=== PATIENT | male | born 1960 | race Caucasian/White ===

== ENCOUNTER 2025-02-20 08:11 | Emergency (ER) | payer OTHER, SELFPAY ==
[2025-02-20] VITALS (15 sets, daily range): BP systolic 149–177; BP diastolic 81–94; PULSE 59–74; TEMP 36.7; O2SAT 91–97; BMI 36.9
--- NOTE | 2025-02-20 08:27 | XR_ITS ---
[facility] [id number] Patient Name: LIZET KWON MRN: [id number] date: 1960 Sex: M Assigned Patient Location: ED.MAIN Current Patient Location: ED.MAIN Accession/Order Number: [id number] Exam Date: 02/20/2025 09:00 Report Date: 02/20/2025 09:01 At the request of: DIEGO DONOVAN MD Procedure: XR hip RT min 2V XR hip RT min 2V 02/20/2025 8:53 AM SIGNS AND SYMPTOMS: Fall, right hip pain PROTOCOL: Frontal and frog-leg views of the right hip COMPARISON: None FINDINGS: There is total right hip arthroplasty hardware. No fracture or hardware palpation. The visualized right hemipelvis is grossly intact. Enthesophyte formation is noted along the ischial tuberosity. XR/XR hip RT min 2V IMPRESSION: Uncomplicated total right hip arthroplasty. No fracture or dislocation. Impression dictated by: Jesús Mae M.D. 02/20/2025 9:01 AM Dictation Location: [facility] Electronically authenticated by: [id number] Y Date: 02/20/2025 09:01
--- NOTE | 2025-02-20 08:27 | XR_ITS ---
[facility] [id number] Patient Name: LIZET KWON MRN: [id number] date: 1960 Sex: M Assigned Patient Location: ED.MAIN Current Patient Location: ED.MAIN Accession/Order Number: [id number] Exam Date: 02/20/2025 08:58 Report Date: 02/20/2025 09:00 At the request of: DIEGO DONOVAN MD Procedure: XR shoulder RT min 2V XR shoulder RT min 2V 02/20/2025 8:53 AM SIGNS AND SYMPTOMS: Fall, right shoulder pain PROTOCOL: Frontal, Grashey, and scapular Y views of the right shoulder COMPARISON: None FINDINGS: Hypertrophic changes are noted in the acromioclavicular joint with narrowing of the glenohumeral joint. There is spurring of the inferior margin of the glenoid and humeral head. There is subcortical sclerosis at the greater tuberosity of the humerus. There is no fracture or dislocation. Visualized right hemithorax is grossly intact. Anterior fusion hardware is noted in the cervical spine. XR/XR shoulder RT min 2V IMPRESSION: No fracture or dislocation. Degenerative changes are noted in the right shoulder with findings suspicious for underlying rotator cuff pathology. Impression dictated by: Jesús Mae M.D. 02/20/2025 9:00 AM Dictation Location: [place] [address] Electronically authenticated by: [id number] Y Date: 02/20/2025 09:00
--- NOTE | 2025-02-20 08:28 | ED.GENADUL1 ---
HPI HPI - General Adult General Chief complaint: Fall Stated complaint: [facility] F[facility] Time Seen by Provider: 02/20/25 08:15 Source: patient Mode of arrival: walk-in Limitations: no limitations History of Present Illness HPI narrative: 65-year-old male presents for pain in his right shoulder and right hip. He fell at work 2 days ago and he states his work place made him come in. No other injury was sustained. He has been able to ambulate and move his shoulder. No LOC and he did not hit his head. Related Data Home Medications ?Medication ?Instructions ?Recorded ?Confirmed atorvastatin 40 mg tablet mg 02/20/25 citalopram 40 mg tablet mg 02/20/25 lamotrigine 25 mg tablet mg 02/20/25 Previous Rx's ?Medication ?Instructions ?Recorded etodolac 300 mg capsule 300 mg PO Q6H PRN pain #20 caps 02/20/25 Allergies Allergy/AdvReac Type Severity Reaction Status Date / Time No Known Drug Allergies Allergy Verified 02/20/25 08:18 Opioid HPI Opioid Management Most Recent Opioid Data: Last Pain Scale 10 Today, 10:30 Last MAR Pain Assessment Today, 10:30 Review of Systems ROS Narrative A ten point review of systems is negative except as noted above. PFSH PFSH Social History Little interest or pleasure in doing things: not at all Feeling down, depressed, or hopeless: not at all Exam Narrative Exam Narrative: Nurses note and vital signs reviewed and patient is not hypoxic. General: The patient appears well and in no apparent distress. Patient is standing and walking around the room Skin: Warm, dry, no pallor noted. There is no rash noted. Head: Normocephalic, atraumatic Eye: Normal conjunctiva, no drainage Ears, Nose, Mouth, and Throat: oral mucosa is moist. Nares patent. Cardiovascular: Regular Rate and Rhythm Respiratory: Patient is in no distress, no accessory muscle use, lungs are clear to auscultation, no wheezing, rales or rhonchi Back: non-tender, including C-spine GI: Soft and nontender Musculoskeletal: Right hip has full range of motion and no bruises or deformity. Likewise, right shoulder has full range of motion and no deformity. Radial pulse 2+. Right elbow nontender. Neurological: A&O, normal speech Psychiatric: Cooperative Constitutional Vital Signs, click to edit/add: Last Vital Signs Temp 98.1 F 02/20/25 08:19 Pulse 59 L 02/20/25 10:10 Resp 22 H 02/20/25 09:18 BP 149/81 H 02/20/25 10:01 Pulse Ox 92 L 02/20/25 10:10 O2 Del Method Room Air 02/20/25 08:19 Course Vital Signs Vital signs: Vital Signs Temperature 98.1 F 02/20/25 08:19 Pulse Rate 74 02/20/25 08:19 Respiratory Rate 18 02/20/25 08:19 Blood Pressure 166/94 H 02/20/25 08:19 Pulse Oximetry 97 02/20/25 08:19 Oxygen Delivery Method Room Air 02/20/25 08:19 Temperature 98.1 F 02/20/25 08:19 Pulse Rate 59 L 02/20/25 10:10 Respiratory Rate 22 H 02/20/25 09:18 Blood Pressure 149/81 H 02/20/25 10:01 Pulse Oximetry 92 L 02/20/25 10:10 Oxygen Delivery Method Room Air 02/20/25 08:19 Medical Decision Making MDM Narrative Medical decision making narrative: His workup is negative including CT brain, x-ray of shoulder and x-ray of hip. Blood work is negative as well including troponin. He was given IV Toradol and prescribed Lodine. Treatment diagnosis and follow-up were discussed with the patient. Differential Diagnosis Differential Diagnosis: Contusions, fractures, intracranial hemorrhage Lab Data Lab results reviewed: Yes I reviewed the patient's lab results Labs: Lab Results 02/20/25 Range/Units 09:26 WBC 5.5 (4.0-11.0) 10^3/uL RBC 4.90 (4.70-6.10) 10^6/uL Hgb 15.9 (14.0-18.0) g/dL Hct 44.9 (42.0-54.0) % MCV 91.6 (80.0-94.0) fL MCH 32.4 (25.9-34.0) pg MCHC 35.4 H (29.9-35.2) g/dL RDW 12.0 (11.0-15.0) % Plt Count 152 (150-450) 10^3/uL MPV 9.3 L (9.5-13.5) fL Neut % (Auto) 65.0 (43.0-75.0) % Lymph % (Auto) 20.6 (20.5-60.0) % Saline % (Auto) 8.6 (1.7-12.0) % Eos % (Auto) 4.9 (0.9-7.0) % Baso % (Auto) 0.7 (0.2-2.0) % Neut # (Auto) 3.6 (1.4-6.5) 10^3/uL Lymph # (Auto) 1.1 L (1.2-3.8) 10^3/uL Saline # (Auto) 0.5 (0.3-0.8) 10^3/uL Eos # (Auto) 0.3 (0.0-0.7) 10^3/uL Baso # (Auto) 0.0 (0.0-0.1) 10^3/uL Abs Immat Gran (auto) 0.01 (0.00-0.03) 10^3/uL Imm/Tot Granulo (auto) 0.2 (0.0-0.5) % Sodium 142 (136-145) mmol/L Potassium 4.5 (3.5-5.1) mmol/L Chloride 106 (98-107) mmol/L Carbon Dioxide 29.8 (21.0-32.0) mmol/L Anion Gap 10.7 BUN 18.0 (7.0-18.0) mg/dL Creatinine 0.79 (0.70-1.30) mg/dL Est GFR ( Amer) >60 (>=60 mL/min/1.73m^2) Est GFR (Non-Af Amer) >60 (>=60 mL/min/1.73m^2) BUN/Creatinine Ratio 22.8 Glucose 104 (74-106) mg/dL Calcium 8.9 (8.5-10.1) mg/dL Troponin I High Sens 11.7 (4.0-76.1) pg/mL Imaging Data CT brain, right shoulder, right hip x-rays: Radiologist's impression: ITS Impressions Hip X-Ray 02/20/25 08:27 IMPRESSION: Uncomplicated total right hip arthroplasty. No fracture or dislocation. Impression dictated by: Jesús Mae M.D. 02/20/2025 9:01 AM Dictation Location: [facility]--24 Electronically authenticated by: [id number] Y Date: 02/20/2025 09:01 Shoulder X-Ray 02/20/25 08:27 IMPRESSION: No fracture or dislocation. Degenerative changes are noted in the right shoulder with findings suspicious for underlying rotator cuff pathology. Impression dictated by: Jesús Mae M.D. 02/20/2025 9:00 AM Dictation Location: [facility] Electronically authenticated by: [id number] Y Date: 02/20/2025 09:[address] 02/20/25 09:13 IMPRESSION: No acute intracranial pathology. 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 Impression dictated by: Jesús Mae M.D. 02/20/2025 9:46 AM Dictation Location: [facility] Electronically authenticated by: [id number] Y Date: 02/20/2025 09:46 ECG Data Attestation: I personally reviewed and interpreted this ECG as follows: (EKG on my interpretation shows sinus rhythm with a rate of 65 and 2 PVCs.) Discharge Plan Discharge Chief Complaint: Fall Clinical Impression: Contusion of multiple sites Patient Disposition: Home, Self-Care Time of Disposition Decision: 10:30 Condition: Good Mode of Transportation: Private Vehicle Prescriptions / Home Meds: New etodolac 300 mg capsule 300 mg PO Q6H PRN (Reason: pain) Qty: 20 0RF No Action atorvastatin 40 mg tablet citalopram 40 mg tablet lamotrigine 25 mg tablet Print Language: Azeri Instructions: Contusion in Adults (ED) Referrals: NANCY HERNÁNDEZ [Primary Care Provider, Family Practice] - 1 week
--- OUTSIDE RECORDS SUMMARY | 2025-02-20 08:35 | XMS_ITS | Clinical Summary ---
Author Organization [facility] Address [address] [place] [address] Care Team Providers Care Breast Buffer Name Role Phone Unavailable Primary Care Provider Unavailabl e Allergies No known active allergies Medications citalopram (CELEXA) 10 MG tablet Take 10 mg by mouth daily. Active traMADol (ULTRAM) 50 MG tablet Take 50 mg by mouth every 6 hours as needed. Active aspirin 81 MG EC tablet Take 1 tablet by mouth daily. 30 tablet 1 03/29/2013 Active atorvastatin (LIPITOR) 40 MG tablet Take 0.5 tablets by mouth nightly. 30 tablet 1 03/29/2013 Active Artificial Tear Ointment (EYE LUBRICANT) OINT Use eye ointment every night before sleeping & then apply patch to help make sure eye is closed. 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 Facial droop 03/29/2013 Family History Medical History Relation Name Comments Coronary Art Dis Father Stroke Maternal Grandmother Diabetes Mother Kidney Cancer Mother Relation Name Status Comments Father Maternal Grandmother Mother Social History Tobacco Use Types Packs/Day Years Used Date Smoking Tobacco: Never Alcohol Use Standard Drinks/Week Comments No 0 (1 standard drink = 0.6 oz pur e alcohol) Sex and Gender Information Value Date Recorded Sex Assigned at Not on file Legal Sex Male 9:26 AM EST Gender Identity Not on file Sexual Orientation Not on file Last Filed Vital Signs Vital Sign Reading Time Taken Comments Blood Pressure 143/72 03/29/2013 12:00 PM EDT Pulse 91 03/29/2013 12:00 PM EDT Temperature 36.2 C (97.2 F) 03/29/2013 12:00 PM EDT Respiratory Rate 18 03/29/2013 12:0 0 PM EDT Oxygen Saturation 96% 03/29/2013 12: 00 PM EDT Inhaled Oxygen Concentration - - Weight 105.9 kg (233 lb 7.5 oz) 03/28/2013 9:21 PM EDT Height 188 cm (6' 2 ) 03/28/2013 9:21 PM EDT Body Mass Index 29.98 03/28/2013 9:21 PM EDT Plan of Treatment Not on file Advance Directives * Full Code (Latest Code Status on File) Date Activated Date Inactivated Comments 03/28/2013 7:41 PM 03/29/2013 7:58 PM
--- OUTSIDE RECORDS SUMMARY | 2025-02-20 08:36 | XMS_ITS | Clinical Summary ---
Author Organization [facility] Address [address] [place] [address] Phone Care Team Providers Care Tool Design Draftsperson Name Role Phone Yola Acosta MD Primary Care Provider [phone] Allergies Active Allergy Reactions Criticality Noted Date Comments Hydromorphone Unknown 11/18/2023 Morphine Unknown 11/18/2023 Medications aspirin 81 mg EC tablet Take 1 tablet (81 mg) by mouth once daily. Active citalopram (CeleXA) 40 mg tablet Take 1 tablet (40 mg) by mouth once daily. Active atorvastatin (Lipitor) 40 mg tablet Take 1 tablet (40 mg) by mouth once daily. Active hydrOXYzine HCL (Atarax) 25 mg tablet Take 1 tablet (25 mg) by mouth 3 times a day. Active lamoTRIgine (LaMICtal) 25 mg tablet Take 1 tablet (25 mg) by mouth once daily at bedtime. Active naproxen (Naprosyn) 500 mg tablet Take 1 tablet (500 mg) by mouth 3 times a day as needed for mild pain (1 - 3). Active omeprazole (PriLOSEC) [address] capsule Take 1 capsule (20 mg) by mouth 2 times a day. Do not crush or chew. Active acetaminophen (Tylenol) 500 mg tablet Take 650 mg by mouth every 6 hours if needed for mild pain (1 - 3). 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 Essential hypertension 11/18/2023 Mixed hyperlipidemia 11/18/2023 Palpitations 11/18/2023 PVC (premature ventricular contraction) 11/18/19 24 Family History Medical History Relation Name Comments Hyperlipidemia Father Hypertension Father Hyperlipidemia Mother Hypertension Mother Kidney disease Sister Relation Name Status Comments Father Mother Sister Social History Tobacco Use Types Packs/Day Years Used Date Smoking Tobacco: Never Smokeless Tobacco: Never Alcohol Use Standard Drinks/Week Comments Never 0 (1 standard drink = 0.6 oz pur e alcohol) Sex and Gender Information Value Date Recorded Sex Assigned at Not on file Legal Sex Male 4:33 AM EST Gender Identity Not on file Sexual Orientation Not on file Last Filed Vital Signs Vital Sign Reading Time Taken Comments Blood Pressure 128/78 11/27/2022 9:40 AM EST Pulse 72 11/27/2022 9:40 AM EST Temperature - - Respiratory Rate - - Oxygen Saturation - - Inhaled Oxygen Concentration - - Weight 109 kg (240 lb) 11/27/2022 9:40 AM EST Height 180.3 cm (5' 11 ) 11/27/2022 9:40 AM EST Body Mass Index 33.47 11/27/2022 9:40 AM EST Plan of Treatment Health Maintenance Due Date Last Done Comments CT Colonography 1960 Colonoscopy 1960 Colorectal Cancer Screening 1960 FIT-DNA (Cologuard) 1960 FIT 1960 Lipid Panel 1960 Sigmoidoscopy 1960 Yearly Adult Physical 1960 MMR Vaccines (1 of 1 - Stand marty series) 1961 Hepatitis C Screening 02/21/1976 DTaP/Tdap/Td Vaccines (1 - Tdap) 02/21/1980 Pneumococcal Vaccine (1 of 1 - PCV) 02/21/2008 Zoster Vaccines (1 of 2) 02/21/2008 COVID-19 Vaccine ( - 2023-2 5 season) 2024 Influenza Vaccine (Season Ended) 2025 RSV High Risk: (Elderly (60+ ) or Population) (1 - 1-dose 75+ series) 2033 HIB Vaccines Aged Out No longer eligi ble based on patient's age to complete this topic HPV Vaccines Aged Out No longer eligi ble based on patient's age to complete this topic Hepatitis A Vaccines Aged Out No long er eligible based on patient's age to complete this topic Hepatitis B Vaccines Aged Out No long er eligible based on patient's age to complete this topic IPV Vaccines Aged Out No longer eligi ble based on patient's age to complete this topic Meningococcal Vaccine Aged Out No krystian daphney eligible based on patient's age to complete this topic Rotavirus Vaccines Aged Out No longer eligible based on patient's age to complete this topic Care Teams Tool Design Draftsperson Relationship Specialty Start Date End Date Yola Acosta MD [address] [place] [address] PCP - General 09/25/22
--- OUTSIDE RECORDS SUMMARY | 2025-02-20 08:36 | XMS_ITS | Referral Summary ---
Author Organization [facility] Address [address] [place] [address] Care Team Providers Care Safety Inspector Name Role Phone Unavailable Primary Care Provider Unavailabl e Social History Tobacco Use Types Packs/Day Years Used Date Smoking Tobacco: Never Assessed Sex and Gender Information Value Date Recorded Sex Assigned at Not on file Gender Identity Not on file Sexual Orientation Not on file Plan of Treatment Not on file
--- OUTSIDE RECORDS SUMMARY | 2025-02-20 08:36 | XMS_ITS | Clinical Summary ---
Author Organization [facility] Healthcare Address [address] [place] [address] Care Team Providers Care Vendor Manager Name Role Phone Yola Acosta MD Primary Care Provider Allergies Active Allergy Reactions Criticality Noted Date Comments Hydromorphone 11/18/2023 Other Reaction(s): Unknown Morphine Unknown 04/10/2021 Penicillin G Unknown 04/01/2023 Medications acetaminophen (Tylenol) 325 MG tablet every 4 (four) hours. Active Aspirin Low Dose 81 MG EC tablet Take 81 mg by mouth in the morning. 01/17/20 23 Active citalopram (CeleXA) 40 MG tablet Take 40 mg by mouth at bedtime. Active hydrOXYzine HCl (Atarax) 25 MG tablet Take 25 mg by mouth 3 (three) times a day as needed for anxiety. Active lamoTRIgine (LaMICtal) 25 MG tablet Take 1 tablet by mouth at bedtime. Active famotidine (Pepcid) 40 MG tablet Take by mouth. Activ e dicyclomine (Bentyl) 10 MG capsule Take 10 mg by mouth in the morning and 10 mg at noon and 10 mg in the evening and 10 mg before bedtime. 12/03/19 23 Active LORazepam (Ativan) 0.5 MG tabletIndications: Anxiety Take 1 tablet (0.5 mg) by mouth Daily as needed for anxiety for up to 2 days Take 1 30 minutes before the procedure and another at time of procedure if needed. 2 tablet 01/03/20 24 Active Additional Information Patient not taking.Reported on 05/15/2024 glucose blood (Accu-Chek Yael Plus) test stripIndications:T ype 2 diabetes mellitus with other specified complication, without long-term current use of insulin Use as instructed 100 each 3 03/02/20 24 025 Active Additional Information Patient not taking.Reported on 05/15/2024 atorvastatin (Lipitor) 40 MG tabletIndications: Hyperlipidemia, unspecified hyperlipidemia type (CMS/HCC) TAKE 1 TABLET(40 MG) BY MOUTH IN THE MORNING 90 tablet 2 06/22/20 24 Active naproxen (Naprosyn) 500 MG tabletIndications: Osteoarthritis, unspecified osteoarthritis type, unspecified site TAKE 1 TABLET BY MOUTH EVERY 12 HOURS NEEDED 180 tablet 07/17/20 24 Active omeprazole (PriLOSEC) [address] capsuleIndications :Peptic ulcer TAKE 1 CAPSULE BY MOUTH EVERY MORNING BEFORE MEALS 90 capsule 1 11/16/19 25 Active Active Problems Problem Noted Date Diagnosed Date Bigeminy 07/28/2023 Lumbago with sciatica, left side 07/28/2023 Lumbago with sciatica, right side 07/28/2023 Presence of right artificial hip joint 3 Primary osteoarthritis of left hip 07/28/2023 History of total right hip replacement 3 Supplemental oxygen dependent 08/07/2021 Nuclear senile cataract 03/21/2021 Chronic fatigue 11/15/2020 Shifting sleep-work schedule, affecting sleep Other chronic pain 07/05/2020 Arthritis of right hip 11/07/2019 Anxiety 10/12/2015 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 Facial droop 03/29/2013 Resolved Problems Problem Noted Date Diagnosed Date Resolved Date Mixed hyperlipidemia 10/12/2015 023 Immunizations Immunization Administration Dates Next Due Influenza, High Dose Seasona l, Preservative Free 07/28/2023 Influenza, Unspecified 07/06/2019 Influenza, injectable, MDCK, preservative free, quadrivalent 07/02/2020 Influenza, injectable, quadr ivalent, preservative free 07/09/2021,06/15/2017,06/27/2016,2014,06/27/2014 Influenza, seasonal, intrade rmal, preservative free 06/27/2012 Francis SARS-CoV-2 01/27/2021 Pneumococcal Conjugate PCV 20 12/28/2023 Td (adult), 5 Lf tetanus tox oid, preservative free, adsorbed 07/09/2008 Tdap 10/14/2017 Family History Medical History Relation Name Comments Cancer Mother Relation Name Status Comments Father Mother Social History Tobacco Use Types Packs/Day Years Used Date Smoking Tobacco: Never Smokeless Tobacco: Never Tobacco Cessation:Counseling Given: Not Answered Alcohol Use Standard Drinks/Week Comments Never 0 (1 standard drink = 0.6 oz pur e alcohol) 2-3 soda Sex and Gender Information Value Date Recorded Sex Assigned at Not on file Legal Sex Male 6:55 PM EDT Gender Identity Male 12/09/2022 6:55 PM EDT Sexual Orientation Not on file Last Filed Vital Signs Vital Sign Reading Time Taken Comments Blood Pressure 122/74 05/15/2024 1:39 PM EDT Pulse 80 12/28/2023 9:00 AM EDT Temperature 36.3 C (97.3 F) 05/15/2024 1:39 PM EDT Respiratory Rate - - Oxygen Saturation 95% 12/28/2023 9:00 AM EDT Inhaled Oxygen Concentration - - Weight 107 kg (235 lb) 05/15/2024 1:39 PM EDT Height 177.8 cm (5' 10 ) 12/28/2023 9:00 AM EDT Body Mass Index 33.72 12/28/2023 9:00 AM EDT Plan of Treatment Health Maintenance Due Date Last Done Comments CT Colonography 1960 FIT-DNA 1960 FIT 1960 FOBT 1960 Sigmoidoscopy 1960 Diabetes: Hemoglobin A1C 10/28/2023 07/28/2023, 10/28 Diabetes: Urine Protein Screening 08/23/2024 023 Influenza Vaccine (Season Ended) 2025 07/28/2023, 07/09/2021, 07/02/2020, Additional history exists Diabetes: Retinopathy Screening 09/22/2025 Colonoscopy 02/19/2033 02/19/2023, 01/26, 11/09/2016, Additional history exists Colorectal Cancer Screening 02/19/2033 Pneumococcal Vaccine: 65+ Years Completed 4 Procedures Procedure Name Priority Date/Time Associated Diagnosis Comments DIABETIC RETINOPATHY SCREENING - OU - BOTH EYES Routine 09/22/2023 12:04 PM EST MICROALBUMIN / CREATININE URINE RATIO Routine 08/23/2023 9:13 AM EST Type 2 diabetes mellitus with other specified complication, without long-term current use of insulin ([facility]) Encounter for wellness examination HEMOGLOBIN A1C Routine 07/28/2023 11:53 AM EDT Type 2 diabetes mellitus with other specified complication, without long-term current use of insulin ([facility]) Encounter for wellness examination HM COLONOSCOPY Routine 02/19/2023 12:51 PM EDT from Last 3 Months or Most Recently Relevant to Health Maintenance Results * Diabetic Retinopathy Screening - OU - Both Eyes (09/22/2023 12:04 PM EST) Anatomical Region Laterality Modality Head Other Ayla Mayfield NP OPHTH PHOTOGRAPHY Final Result * (ABNORMAL) Microalbumin / creatinine, urine ratio (08/23/2023 9:13 AM EST) CREATININE, RANDOM URINE 240 20 - 320 mg/dL [facility] ALBUMIN, URINE 14.2 See Note: mg/dL [facility] Comment: Reference Range: Reference Range Not established ALBUMIN/CREATININE RATIO, RANDOM URINE 59(H) <30 mcg/mg creat [facility] Comment: The ADA defines abnormalities in albumin excretion as follows: Albuminuria Category Result (mcg/mg creatinine) Normal to Mildly increased <30 Moderately increased 30-299 Severely increased > OR = 300 The ADA recommends that at least two of three specimens collected within a 3-6 month period be abnormal before considering a patient to be within a diagnostic category. Urine Urine specimen obtained by clean catch procedure / Unknown 08/23/2023 9:13 AM EST 08/23/2023 4:54 PM EST Narrative [facility] - 08/24/2023 11:00 AM EST SPLIT 07/28/2023 FROM [id number] Resulting Agency Comment Performing Organization Information Site ID: QPT Name: [facility] Address: [address] [place] [address], [address] [place] [phone] Director: Matt Brewer MD us Devorah Pak DRUM STRAIGHTENER LAB URINE ORDERABLES Fi nal Result Performing Organization Address [facility] de Phone Number [facility] * Hemoglobin A1c (07/28/2023 11:53 AM EDT) Hemoglobin A1C 5.5 <5.7 % of total Hgb [facility] Comment: For the purpose of screening for the presence of diabetes: <5.7% Consistent with the absence of diabetes 5.7-6.4% Consistent with increased risk for diabetes (prediabetes) > or =6.5% Consistent with diabetes This assay result is consistent with a decreased risk of diabetes. Currently, no consensus exists regarding use of hemoglobin A1c for diagnosis of diabetes in children. According to [place] Diabetes Association (ADA) guidelines, hemoglobin A1c <7.0% represents optimal control in non- diabetic patients. Different metrics may apply to specific patient populations. Standards of Medical Care in Diabetes(ADA). Blood Venous blood specimen / Unknown 07/28/2023 11:53 AM EDT 07/28/2023 11:53 AM EDT Narrative [facility] - 07/29/2023 7:53 AM EDT MULTIPLE TESTING PRIORITIES; ROUTINE TESTING TO FOLLOW. Resulting Agency Comment Performing Organization Information Site ID: QPT Name: [facility] Address: [facility] [place] , [address] [place] [phone] Director: Matt Brewer MD us Devorah Pak DRUM STRAIGHTENER LAB BLOOD ORDERABLES Fi nal Result Performing Organization Address [facility] de Phone Number [facility] * Hm Colonoscopy (02/19/2023 12:51 PM EDT) Anatomical Region Laterality Modality Other us Lul Maldonado MD HEALTH MAINTENANCE Final Result from Last 3 Months or Most Recently Relevant to Health Maintenance Insurance [employer] Care Teams Vendor Manager Relationship Specialty Start Date End Date Yola Acosta MD [address] [place] [address] PCP - General Family Medicine 03/11/23
--- OUTSIDE RECORDS SUMMARY | 2025-02-20 08:36 | XMS_ITS | Encounter Summary ---
Author Organization [facility] Address [address] [place] [address] Care Team Providers Care It Software Engineer Name Role Phone Yola Acosta MD Primary Care Provider Encounter Details Date Type Department Care Team (Late st Contact Info) Description 02/09/2024 Orders Only [facility] [address] [place] [phone] Ayla Mayfield NP [address] [place], [place] [phone] Social History Tobacco Use Types Packs/Day Years [...] PM EDT Sexual Orientation Not on file documented as of this encounter Plan of Treatment Not on file documented as of this encounter Procedures Procedure Name Priority Date/Time Associated Diagnosis Comments DIABETIC RETINOPATHY SCREENING - OU - BOTH EYES Routine 09/22/2023 12:04 PM EST documented in this encounter Results * Diabetic Retinopathy Screening - OU - Both Eyes (09/22/2023 12:04 PM EST) Anatomical Region Laterality Modality Head Other Ayla Mayfield NP OPHTH PHOTOGRAPHY Final Result documented in this encounter Visit Diagnoses Not on filedocumented in this encounter Care Teams It Software Engineer Relationship Specialty Start Date End Date Yola Acosta MD [address] [place] [address] PCP - General Family Medicine 03/11/23 documented as of this encounter
--- OUTSIDE RECORDS SUMMARY | 2025-02-20 08:36 | XMS_ITS | Encounter Summary ---
Author Organization [facility] Address [address] [facility] [place] [address] Care Team Providers Care Hand Stapler Name Role Phone Yola Acosta MD Primary Care Provider [phone] Encounter Details Date Type Department Care Team (Late st Contact Info) Description 11/22/2023 Abstract [facility] [address] [place] [phone] Ayla Mayfield NP [address] [place], [place] [phone] Social History Tobacco Use Types Packs/Day Years [...] on file documented as of this encounter Visit Diagnoses Not on filedocumented in this encounter Care Teams Hand Stapler Relationship Specialty Start Date End Date Yola Acosta MD [address] [place] [address] PCP - General Family Medicine 03/11/23 documented as of this encounter
--- OUTSIDE RECORDS SUMMARY | 2025-02-20 08:36 | XMS_ITS | Clinical Summary ---
Author Organization [facility] [employer] [facility] tem Address [id number] [address] [place] [address] Care Team Providers Care Nursing Attendant Name Role Phone Yola Acosta MD Primary Care Provider [phone] Allergies No known active allergies Medications citalopram (CeleXA) 20 mg tablet Take 40 mg by mouth daily. Active cholecalciferol, vitamin D3, 5,000 units tablet Take 5,000 Units by mouth daily. Active lamoTRIgine (LaMICtal) 25 mg tablet Take 25 mg by mouth daily. Active gabapentin (NEURONTIN) 300 mg capsule Take 300 mg by mouth 2 (two) times a day. Active naproxen (NAPROSYN) 500 mg tablet Take 500 mg by mouth 2 (two) times a day with meals. Active olopatadine (PATANOL) 0.1 % ophthalmic solution 1 drop 2 (two) times a day. Active atorvastatin (LIPITOR) 40 mg tablet Take 40 mg by mouth daily. Active Active Problems No known active problems Social History Tobacco Use Types Packs/Day Years Used Date Smoking Tobacco: Never Smokeless Tobacco: Never Alcohol Use Standard Drinks/Week Comments Not Currently 0 (1 standard drink = 0.6 oz pur e alcohol) Childcare Answer Date Recorded Childcare Unknown 03/08/2019 Employment Answer Date Recorded Employment Unknown 03/08/2019 Sex and Gender Information Value Date Recorded Sex Assigned at Not on file Legal Sex Male 11:21 AM EDT Gender Identity Not on file Sexual Orientation Not on file Last Filed Vital Signs Vital Sign Reading Time Taken Comments Blood Pressure 128/90 07/28/2021 7:18 PM EDT Pulse 93 07/28/2021 7:51 PM EDT Temperature 36.8 C (98.3 F) 07/28/2021 10:49 AM EDT Respiratory Rate 25 07/28/2021 7:51 PM EDT Oxygen Saturation 99% 07/28/2021 7:51 PM EDT Inhaled Oxygen Concentration - - Weight 111.6 kg (246 lb) 07/28/2021 10:45 AM EDT Height - - Body Mass Index - - Plan of Treatment Health Maintenance Due Date Last Done Comments Depression Screening 1970 Tobacco Screening 1970 Adult BMI Screening 02/21/1976 Zoster (Shingles) Vaccine (1 of 2) 02/21/2008 Fall Risk Screening 2023 COVID-19 Vaccine (3 - 2023-2 5 season) 2024 11/19/2021, 01/28/2021 Influenza Vaccine 05/28/2025 07/28/2023, , 07/02/2020, Additional history exists Colonoscopy 11/09/2026 11/09/2016 DTaP,Tdap and Td Vaccines (3 - Td or Tdap) 10/14/2027 10/14/2017, 07/09/2008 Medical Devices Not on file Insurance [employer] Care Teams Nursing Attendant Relationship Specialty Start Date End Date Yola Acosta MD [address] [place] [address] PCP - General Family Medicine 07/28/21
--- OUTSIDE RECORDS SUMMARY | 2025-02-20 08:36 | XMS_ITS | Encounter Summary ---
Author Organization [facility] Address [address] [place] [address] Care Team Providers Care Watermelon Harvesting Supervisor Name Role Phone Yola Acosta MD Primary Care Provider [phone] Encounter Details Date Type Department Care Team (Late st Contact Info) Description 03/05/2023 Orders Only [facility] [address] [facility] [address] [facility] [place] [address] Lul Maldonado MD [address] [place] [phone] Social History Tobacco Use Types Packs/Day Years [...] Procedure Name Priority Date/Time Associated Diagnosis Comments HM COLONOSCOPY Routine 02/19/2023 12:51 PM EDT documented in this encounter Results * Hm Colonoscopy (02/19/2023 12:51 PM EDT) Anatomical Region Laterality Modality Other Lul Maldonado MD HEALTH MAINTENANCE Final Result documented in this encounter Visit Diagnoses Not on filedocumented in this encounter Care Teams Watermelon Harvesting Supervisor Relationship Specialty Start Date End Date Yola Acosta MD [address] [place] [address] PCP - General Family Medicine 03/11/23 documented as of this encounter
--- OUTSIDE RECORDS SUMMARY | 2025-02-20 08:36 | XMS_ITS | Encounter Summary ---
Author Organization [facility] Address [address] [place] [address] Care Team Providers Care Child Development Consultant Name Role Phone Yola Acosta MD Primary Care Provider [phone] Reason for Visit * Reason Comments Med Refill Encounter Details Date Type Department Care Team (Late st Contact Info) Description 12/12/2023 Refill [facility] [address] [place] [phone] Ayla Mayfield NP [address] [place], [place] [phone] Osteoarthritis, unspecified osteoarthritis type, unspecified site Social History Tobacco Use Types Packs/Day Years [...] on file documented as of this encounter Miscellaneous Notes * Telephone Encounter - Yola Acosta MD - 12/13/2023 12:08 PM EDT Approving, but needs appt for additional refills. documented in this encounter Plan of Treatment Not on file documented as of this encounter Visit Diagnoses Diagnosis Osteoarthritis, unspecified osteoarthritis type, unspecified site documented in this encounter Care Teams Child Development Consultant Relationship Specialty Start Date End Date Yola Acosta MD [address] [place] [address] PCP - General Family Medicine 03/11/23 documented as of this encounter
--- OUTSIDE RECORDS SUMMARY | 2025-02-20 08:36 | XMS_ITS | Encounter Summary ---
Author Organization [facility] Address [address] [place] [address] Phone Care Team Providers Care Embosser Apprentice Name Role Phone Yola Acosta MD Primary Care Provider [phone] Encounter Details Date Type Department Care Team (Late st Contact Info) Description 08/31/2022 Orders Only [facility] [address] [place] [address] Conversion, Onbase Social History Tobacco Use Types Packs/Day Years Used Date Smoking Tobacco: Never Assessed Sex and Gender Information Value Date Recorded Sex Assigned at Not on file Legal Sex Male 4:33 AM EST Gender Identity Not on file Sexual Orientation Not on file documented as of this encounter Plan of Treatment Scheduled Orders Name Type Priority Associated Diagnoses Orde r Schedule OUTSIDE LAB SCAN Lab Ordered: 08/31/2022 documented as of this encounter Visit Diagnoses Not on filedocumented in this encounter Care Teams Embosser Apprentice Relationship Specialty Start Date End Date Yola Acosta MD [address] [place] [phone] PCP - General 09/25/22 documented as of this encounter
--- OUTSIDE RECORDS SUMMARY | 2025-02-20 08:36 | XMS_ITS | Clinical Summary ---
Author Organization [facility] Address [address] [place] [address] Care Team Providers Care Motor Vehicle Lecturer Name Role Phone Unavailable Primary Care Provider Unavailabl e Social History Tobacco Use Types Packs/Day Years Used Date Smoking Tobacco: Never Assessed Sex and Gender Information Value Date Recorded Sex Assigned at Not on file Gender Identity Not on file Sexual Orientation Not on file Plan of Treatment Not on file
--- NOTE | 2025-02-20 09:13 | CT_ITS ---
The [address] [address] Patient Name: LIZET KWON MRN: [id number] date: 1960 Sex: M Assigned Patient Location: ER Current Patient Location: ER Accession/Order Number: [id number] Exam Date: 02/20/2025 09:44 Report Date: 02/20/2025 09:46 At the request of: DIEGO DONOVAN MD Procedure: CT head/brain wo con CT head/brain wo con 02/20/2025 9:28 AM SIGNS AND SYMPTOMS: Fall, pain in right side of head with nausea TECHNIQUE:Multi-detector CT axial slices of the brain were obtained without IV contrast. CT was performed with one or more of the following dose reduction techniques: Automated exposure control, adjustment of the mA and/or kV according to patient size, or use of iterative reconstruction technique. COMPARISON: None. FINDINGS: There is no shift of the midline structures, acute intracranial bleeding, mass effects, or evidence of acute ischemia. Atherosclerotic changes are noted in the V4 segment of the left vertebral artery and intracranial segments of the internal carotid arteries. There is mild age-related cortical atrophy. The ventricular system is normal in size. The brainstem and the cerebellum are unremarkable. The visualized intraorbital contents, the visualized paranasal sinuses, and the infratemporal soft tissues show no acute abnormality. The osseous structures in the skull base and the calvarium show no abnormality. CT/CT head/brain wo con IMPRESSION: No acute intracranial pathology. 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 Impression dictated by: Jesús Mae M.D. 02/20/2025 9:46 AM Dictation Location: Enertiv Electronically authenticated by: [id number] Y Date: 02/20/2025 09:46
--- NOTE | 2025-02-20 09:13 | ECG_ITS ---
The [facility] Test Date: 2025-02-20 Pat Name: LIZET KWON Department: Room: - Gender: Male Stamp Maker: : 1960 Requested By: [id number] Order Number: [id number] Reading MD: WILL HOOKS M.D. Measurements Intervals Monon Rate: 65 P: 55 IL: 180 QRS: 71 QRSD: 86 T: 48 QT: 408 QTc: 419 Interpretive Statements 1100 Sinus rhythm 1570 with occasional ventricular premature complexes 9140 abnormal rhythm ECG Compared to ECG 08/30/2022 15:33:41 No significant changes Electronically Signed On 02-20-2025 13:33:09 EDT by WILL HOOKS M.D.
[2025-02-20 09:42] LABS: Basophils Percent Auto 0.7 % (0.2-2.0); Eosinophils Absolute Auto 0.3 10^3/uL (0.0-0.7); Eosinophils Percent Auto 4.9 % (0.9-7.0); Hematocrit 44.9 % (42.0-54.0); Hemoglobin 15.9 g/dL (14.0-18.0); Immature Granulocytes Abs Auto 0.01 10^3/uL (0.00-0.03); Immature Granulocytes Pct Auto 0.2 % (0.0-0.5); Lymphocytes Absolute Auto 1.1 10^3/uL (1.2-3.8); Lymphocytes Percent Auto 20.6 % (20.5-60.0); Mean Corpuscular HGB Conc 35.4 g/dL (29.9-35.2); Mean Corpuscular Hemoglobin 32.4 pg (25.9-34.0); Mean Corpuscular Volume 91.6 fL (80.0-94.0); Mean Platelet Volume 9.3 fL (9.5-13.5); Monocytes Absolute Auto 0.5 10^3/uL (0.3-0.8); Monocytes Percent Auto 8.6 % (1.7-12.0); Neutrophils Absolute Auto 3.6 10^3/uL (1.4-6.5); Platelet Count 152 10^3/uL (150-450); White Blood Count 5.5 10^3/uL (4.0-11.0)
[2025-02-20 10:10] LABS: Anion Gap 10.7; BUN Creatinine Ratio 22.8; Calcium 8.9 mg/dL (8.5-10.1); Carbon Dioxide 29.8 mmol/L (21.0-32.0); Chloride 106 mmol/L (98-107); Estimated GFR (African America >60 (>=60 mL/min/1.73m^2); Estimated GFR (Non-African Ame >60 (>=60 mL/min/1.73m^2); Glucose 104 mg/dL (74-106); Potassium 4.5 mmol/L (3.5-5.1); Sodium 142 mmol/L (136-145); Troponin I High Sensitivity 11.7 pg/mL (4.0-76.1)
[2025-02-20] MEDS: KETOROLAC TROMETHAMINE 30 MG/ML VIAL IVP (10:30)
== END 2025-02-20 11:13 | disposition home or self-care (01) ==
PROVIDERS: Emergency Provider Emergency Medicine; PCP Family Medicine
DX: T14.8XXA Other injury of unspecified body region, initial encounter (principal); W18.39XA Other fall on same level, initial encounter
CPT/HCPCS: 36415; 70450; 73030; 73502; 80048; 84484; 85025; 93005; 96374; 99285; J1885

== ENCOUNTER 2025-08-28 09:47 | Outpatient (OUT) | payer OTHER, SELFPAY ==
--- OUTSIDE RECORDS SUMMARY | 2025-08-28 09:50 | XMS_ITS | Clinical Summary ---
Author Organization [facility] Address [address] [place] [address] Care Team Providers Care Sales Project Engineer Name Role Phone Unavailable Primary Care Provider Unavailabl e Social History Tobacco UseTypesPacks/DayYears UsedDateSmoking Tobacco: Never AssessedSex and Gender InformationValueDate RecordedSex Assigned at BirthNot on fileLegal Sex Male03/25/2022 9:23 PM EDTGender IdentityNot on fileSexual OrientationNot on file Plan of Treatment Not on file
--- OUTSIDE RECORDS SUMMARY | 2025-08-28 09:50 | XMS_ITS | Clinical Summary ---
Author Organization [facility] Address [address] [place] [address] Phone Care Team Providers Care Asbestos Pipe Supervisor Name Role Phone Yola Acosta MD Primary Care Provider [phone] Allergies Active AllergyReactionsCriticalityNoted DateCommentsHydromorphoneUnknown 11/18/20234595NcwocljbYzaqoyj39/22/2024 Medications MedicationSigDispense QuantityRefillsLast FilledStart DateEnd DateStatus aspirin 81 mg EC tablet Take 1 tablet (81 mg) by mouth once daily.Active citalopram (CeleXA) 40 mg tablet Take 1 tablet (40 mg) by mouth once daily.Active atorvastatin (Lipitor) 40 mg tablet Take 1 tablet (40 mg) by mouth once daily.Active hydrOXYzine HCL (Atarax) 25 mg tablet Take 1 tablet (25 mg) by mouth 3 times a day.Active lamoTRIgine (LaMICtal) 25 mg tablet Take 1 tablet (25 mg) by mouth once daily at bedtime.Active naproxen (Naprosyn) 500 mg tablet Take 1 tablet (500 mg) by mouth 3 times a day as needed for mild pain (1 - 3). Active omeprazole (PriLOSEC) [address] capsule Take 1 capsule (20 mg) by mouth 2 times a day. Do not crush or chew.Active acetaminophen (Tylenol) 500 mg tablet Take 650 mg by mouth every 6 hours if needed for mild pain (1 - 3).Active Active Problems ProblemNoted DateDiagnosed DateAbnormal EKG011/18/2023nxiety and depression 11/18/20235244Ogkrydmn02/22/2024ell's palsy11/18/2023Essential hypertension 11/18/2023Mixed zijyvidxfzozyt51/22/7526Lwhzmshlqkjj34/22/2024VC (premature ventricular contraction)11/18/2023 Family History Medical HistoryRelationNameCommentsHyperlipidemiaFatherHypertensionFather HyperlipidemiaMotherHypertensionMotherKidney diseaseSisterRelationNameStatus CommentsFatherMotherSister Social History Tobacco UseTypesPacks/DayYears UsedDateSmoking Tobacco: NeverSmokeless Tobacco: NeverAlcohol UseStandard Drinks/WeekCommentsNever0 (1 standard drink = 0.6 oz pure alcohol)Sex and Gender InformationValueDate RecordedSex Assigned at Not on fileLegal TtyIltp27/26/2022 4:33 AM ESTGender IdentityNot on fileSexual OrientationNot on file Last Filed Vital Signs Vital SignReadingTime TakenCommentsBlood Zgelayhv384/78011/27/2022 9:40 AM EST Rrhkw4967/03/2023 9:40 AM ESTTemperature--Respiratory Rate--Oxygen Saturation-- Inhaled Oxygen Concentration--Bkojoy603 kg (240 lb)11/27/2022 9:40 AM ESTHeight 180.3 cm (5' 11 )11/27/2022 9:40 AM ESTBody Mass Index33.47011/27/2022 9:40 AM EST Plan of Treatment Health MaintenanceDue DateLast DoneCommentsCT Ikjxqyyaotgm1958Colonoscopy 1958Colorectal Cancer Xkuwaeesi1958FIT-DNA (Cologuard)1958FIT 1958Lipid Panel1958 0464Hxttbetksvlxp1958Yearly Adult Physical 1958MMR Vaccines (1 of 1 - Standard series)1959Hepatitis C Screening 02/21/1976DTaP/Tdap/Td Vaccines (1 - Tdap)02/21/1980PSA Prostate Cancer Lfpscngot65/27/2008Pneumococcal Vaccine (1 of 1 - PCV)02/21/2008Zoster Vaccines (1 of 2)02/21/2008Influenza Vaccine (#1)2025OVID-19 Vaccine (1 - 2024- season)2025RSV High Risk: (Elderly (60+) or Population) (1 - 1- dose 75+ series)2033HIB VaccinesAged OutNo longer eligible based on patient's age to complete this topicHPV VaccinesAged OutNo longer eligible based on patient's age to complete this topicHepatitis A VaccinesAged OutNo longer eligible based on patient's age to complete this topicHepatitis B VaccinesAged OutNo longer eligible based on patient's age to complete this topicIPV Vaccines Aged OutNo longer eligible based on patient's age to complete this topic Meningococcal VaccineAged OutNo longer eligible based on patient's age to complete this topicRotavirus VaccinesAged OutNo longer eligible based on patient's age to complete this topic Care Teams Team MemberRelationshipSpecialtyStart DateEnd Date Yola Acosta MD [address] [place] [address] PCP - Qtlohmj78/30/22
--- OUTSIDE RECORDS SUMMARY | 2025-08-28 09:50 | XMS_ITS | Encounter Summary ---
Author Organization [facility] Address [address] [place] [address] Care Team Providers Care Shoe Shanker Name Role Phone Yola Acosta MD Primary Care Provider [phone] Encounter Details DateTypeDepartmentCare Team (Latest Contact Info)Edmupamyzqf93/26/2025Telephone [facility] Medicine [address] [place] [address] Gloria Burns MA Social History Tobacco UseTypesPacks/DayYears UsedDateSmoking Tobacco: NeverSmokeless Tobacco: NeverAlcohol UseStandard Drinks/WeekCommentsNever0 (1 standard drink = 0.6 oz pure alcohol)Caffine: 1 liter dailyPHQ-2AnswerDate RecordedPatient Health Questionnaire-2 Wksti690Sex and Gender InformationValueDate RecordedSex Assigned at BirthNot on fileLegal PigRfbc0712/09/2022 6:55 PM EDTGender Identity Male12/09/2022 6:55 PM EDTSexual OrientationNot on filedocumented as of this encounter Miscellaneous Notes * Telephone Encounter - Gloria Burns MA - 08/22/2025 4:24 PM EST Spoke with pt, he will be in for labs soon documented in this encounter Plan of Treatment DateTypeDepartmentCare Team (Latest Contact Info)Rdevatoaqle05/08/2025 2:45 PM ESTOffice Visit [facility] [address] [place] [address] Genoveva Mcginnis, DO [address] [place] [address] documented as of this encounter Visit Diagnoses Not on filedocumented in this encounter Additional Health Concerns AssessmentNoted TimePHQ-9 Depression Total Score: 3:32 PM EDT documented as of this encounter Care Teams Team MemberRelationshipSpecialtyStart DateEnd Date Yola Acosta MD [address] [place], [place] [id number] PCP - GeneralFamily Medicine03/11/23documented as of this encounter
--- OUTSIDE RECORDS SUMMARY | 2025-08-28 09:50 | XMS_ITS | Clinical Summary ---
Author Organization [facility] Address [address], [address] [place] [address] Care Team Providers Care Manager Surgical Name Role Phone Unavailable Primary Care Provider Unavailabl e Allergies No known active allergies Medications MedicationSigDispense QuantityRefillsLast FilledStart DateEnd DateStatus citalopram (CELEXA) 10 MG tablet Take 10 mg by mouth daily.Active traMADol (ULTRAM) 50 MG tablet Take 50 mg by mouth every 6 hours as needed.Active aspirin 81 MG EC tablet Take 1 tablet by mouth daily. 30 tablet ctive atorvastatin (LIPITOR) 40 MG tablet Take 0.5 tablets by mouth nightly. 30 tablet ctive Artificial Tear Ointment (EYE LUBRICANT) OINT Use eye ointment every night before sleeping & then apply patch to help make sure eye is closed. 1 Tube ctive Active Problems ProblemNoted DateDiagnosed DateBell's palsy03/29/2013Facial droop03/29/2013 Family History Medical HistoryRelationNameCommentsCoronary Art DisFatherStrokeMaternal GrandmotherDiabetesMotherKidney CancerMotherRelationNameStatusCommentsFather Maternal GrandmotherMother Social History Tobacco UseTypesPacks/DayYears UsedDateSmoking Tobacco: NeverAlcohol UseStandard Drinks/WeekCommentsNo0 (1 standard drink = 0.6 oz pure alcohol)Sex and Gender InformationValueDate RecordedSex Assigned at BirthNot on fileLegal SexMale 11/06/2012 9:26 AM ESTGender IdentityNot on fileSexual OrientationNot on file Last Filed Vital Signs Vital SignReadingTime TakenCommentsBlood Pypigejh654/7207 12:00 PM EDT Atnuk3155 12:00 PM LZHAdnjvxcyhyt12.2 ??C (97.2 ??F)03/29/2013 12:00 PM EDTRespiratory Mtdp726303/29/2013 12:00 PM EDTOxygen Lcgnsssicu06%03/29/2013 12:00 PM EDTInhaled Oxygen Concentration--Bipzgu761.9 kg (233 lb 7.5 oz)03/28/2013 9:21 PM FDHPhiqxe084 cm (6' 2 )03/28/2013 9:21 PM EDTBody Mass Index29.98 03/28/2013 9:21 PM EDT Plan of Treatment Not on file Advance Directives * Full Code (Latest Code Status on File) Date ActivatedDate InactivatedComments03/28/2013 7:41 PM03/29/2013 7:58 PM
--- OUTSIDE RECORDS SUMMARY | 2025-08-28 09:50 | XMS_ITS | Clinical Summary ---
Author Organization [facility] Address [address] [place] [address] Care Team Providers Care Design Engineer Agricultural Equipment Name Role Phone Yola Acosta MD Primary Care Provider [phone] Allergies Active AllergyReactionsCriticalityNoted DateCommentsHydromorphoneOtherLow 11/18/2023 He was hallucinating but thinks it was because he was given too high of a dose SuzvbsszNibdzQai44/15/2021 He was hallucinating but thinks it was because he was given too high of a dose Penicillin PCzsxedfQdo87/06/2023 Unsure of reaction Medications MedicationSigDispense QuantityRefillsLast FilledStart DateEnd DateStatus acetaminophen (Tylenol) 325 MG tablet every 4 (four) hoursActive Aspirin Low Dose 81 MG EC tablet Take 81 mg by mouth Daily01/16/2023ctive citalopram (CeleXA) 40 MG tablet Take 40 mg by mouth at bedtimeActive hydrOXYzine HCl (Atarax) 25 MG tablet Take 25 mg by mouth 3 (three) times a day as needed for anxietyActive lamoTRIgine (LaMICtal) 25 MG tablet Take 1 tablet by mouth at bedtimeActive atorvastatin (Lipitor) 40 MG tablet Indications:Hyperlipidemia, unspecified hyperlipidemia typeTAKE 1 TABLET(40 MG) BY MOUTH IN THE MORNING 90 tablet 5Active sucralfate (Carafate) 1 g tablet Indications:PUD (peptic ulcer disease)Take 1 tablet (1 g) by mouth in the morning and 1 tablet (1 g) in the evening. Take before meals. 180 tablet 5Active omeprazole (PriLOSEC) [address] capsule Indications:Peptic ulcerTake 1 capsule (40 mg) by mouth in the morning. Take before meals. Do not crush or chew. 90 capsule 5Active losartan (Cozaar) 100 MG tablet Indications:Primary hypertensionTake 1 tablet (100 mg) by mouth Daily 90 tablet 5Active meloxicam (Mobic) 15 MG tablet Indications:Primary osteoarthritis involving multiple jointsTake 1 tablet (15 mg) by mouth Daily 90 tablet 5Active albuterol HFA 90 mcg/act inhaler Indications:Pneumonia of both lungs due to infectious organism, unspecified part of lungINHALE 2 PUFFS BY MOUTH EVERY 4 HOURS NEEDED FOR WHEEZING 18 g 5Active albuterol HFA 90 mcg/act inhaler Indications:Pneumonia of both lungs due to infectious organism, unspecified part of lungInhale 2 puffs every 4 (four) hours if needed for wheezing 18 g Discontinued Active Problems ProblemNoted DateDiagnosed DateAbnormal EKG04Anxiety and depression 11/18/2023Essential knohxlnabaap00/22/1090Hcdtrojxhzqd47/22/2024igeminy 07/28/2023Lumbago with sciatica, left side07/28/2023Lumbago with sciatica, right side07/28/2023resence of right artificial hip joint07/28/2023rimary osteoarthritis of left hip07/28/2023History of total right hip replacement 03/10/2023Supplemental oxygen iauyxjojy98/11/2021 Assessment & Plan (06/04/2025 4:40 PM EDT): Orders: Pulmonary Function Test XR chest 2 views; Future Nuclear senile vcvhznxa97/25/2021hronic szvljtk5711/15/2020hifting sleep-work schedule, affecting sleep11/15/2020Other chronic pain07/05/2020Arthritis of right hip11/07/20196339Tutnmxd75/16/2016Bell's palsy03/29/2013Facial droop03/29/2013 Resolved Problems ProblemNoted DateDiagnosed DateResolved DateMixed qfklkjnwjwpcco22/16/2016 07/28/2023 Encounters DateTypeDepartmentCare VkrhYnptlbfcnmw48/26/2025Telephone [facility] [address] [facility] [place] [address] Gloria Burns MA 08/15/2025Telephone [facility] [address] [place] [address] Randee Jimenez MA 08/11/2025bstract [facility] [address] [facility] [place] [address] Ayla Mayfield NP 08/10/2025 1:00 PM ESTConsult [facility] [address] [place] [address] Genoveva Mcginnis DO Diaphragm dysfunction (Primary Dx); Shortness of breath; LOU (obstructive sleep apnea); Xenwmfw3008/10/2025amboo flowsheet [facility] [address] [place] [address], [place] [address] Genoveva Mcginnis DO 08/06/2025Orders Only [place] [id number] [facility] [place] [address] Yola Acosta MD 08/04/2025Refill [id number] [facility] [place] [address] Ayla Mayfield NP Pneumonia of both lungs due to infectious organism, unspecified part of lung 07/23/2025Refill [facility] [facility] [place] [address] Yola Acosta MD Peptic ulcer; Primary hypertension; Primary osteoarthritis involving multiple dwyfht3907/20/2025Refill [facility] [address] [facility] [place] [address] Ayla Mayfield NP Primary osteoarthritis involving multiple gamjrs4207/20/2025Refill [facility] [address] [place] [address] Yola Acosta MD Peptic ulcer07/11/2025Telephone [facility] [address] [place] [address] Yola Acosta MD 07/08/2025Results Follow-Up [facility] [address] [place] [address] Yola Acosta MD Porphyrins, urine, uovkfwofqrue45/08/2025Telephone [facility] [address] [place] [address] Yola Acosta MD possible mold issue07/03/2025Orders Only [facility] [address] [place] [address] Yola Acosta MD 07/02/2025 12:30 PM EDTAncillary Procedure [facility] [address] [place] [address] SOB (shortness of breath)07/02/2025Results Follow-Up [facility] [address] [place] [address] Ayla Mayfield, MOE CT chest w IV sapozcte39/06/4176Zigihn32/06/2025Telephone [facility] [address] [place] [address] Yola Acosta MD 06/29/2025Telephone [facility] [address] [place] [address] Yola Acosta MD 06/28/2025 11:30 AM EDTOffice Visit [facility] [address] [place] [address] Yola Acosta MD Hypoxemia (Primary Dx); Chronic abdominal pain; Htpuyspyxigject08/02/2025Bamboo flowsheet [facility] [address] [facility] [place] [address] Yola Acosta MD 06/28/20254561Qgadfc15/26/2025Telephone [facility] [address] [facility] [place] [address] Yola Acosta MD 06/18/2025 3:00 PM EDTOffice Visit [facility] [address] [facility] [place] [address] Ayla Mayfield NP Acute cough (Primary Dx); Acute respiratory failure with hypoxia (HCC); Acute bronchitis, unspecified xzsskkhy37/22/2025 2:45 PM EDTAncillary Procedure [facility] [address] [facility] [address] [place] [address] Acute cough06/18/2025Results Follow-Up [facility] [address] [facility] [place] [address] Ayla Mayfield NP XR chest 2 views06/18/2025Telephone [facility] [address] [facility] [place] [address] Ayla Mayfield NP 06/18/2025amboo flowsheet [facility] [address] [facility] [place] [address] Ayla Mayfield NP 06/18/20256061Qtvnze80/21/2025Refill [facility] [address] [facility] [place] [address] Devorah Ledesma NP Osteoarthritis, unspecified osteoarthritis type, unspecified site06/11/2025 Telephone [facility] [address] [facility] [place] [address] Yola Acosta MD 06/05/2025 2:00 PM EDTAncillary Procedure [facility] [address] [facility] [address] [place] [address] 06/05/2025Telephone [facility] [address] [facility] [place] [address] Yola Acosta MD 06/05/20254398Uilbpg29/08/2025 2:30 PM EDTAncillary Procedure [facility] [address] [facility] [address] [facility] [place] [address] Pneumonia of both lungs due to infectious organism, unspecified part of lung; Supplemental oxygen bsrzmdyzo46/08/2025 2:30 PM EDTOffice Visit [facility] [address] [facility] [place] [address] Ayla Mayfield NP Pneumonia of both lungs due to infectious organism, unspecified part of lung (Primary Dx); Supplemental oxygen dependent; Acute respiratory failure with hypoxia (HCC)06/04/2025Results Follow-Up [facility] [address] [facility] [place] [address] Ayla Mayfield NP XR chest 2 views, Pulmonary Function Test5Bamboo flowsheet [facility] [address] [facility] [place] [address] Ayla Mayfield NP 06/04/20254447Fuferm40/04/2025Telephone [facility] [address] [facility] [place] [address] Gloria Burns MA 05/29/2025 5:30 PM EDTOffice Visit [facility] [address] [facility] [place] [address] Ayla Mayfield NP Pneumonia of both lungs due to infectious organism, unspecified part of lung (Primary Dx); Generalized abdominal pain5Bamboo flowsheet [facility] [address] [facility] [place] [address] Ayla Mayfield NP 05/29/2025Travelfrom Last 3 Months Immunizations ImmunizationAdministration DatesNext DueInfluenza, High Dose Seasonal, Preservative Free07/28/2023Influenza, Sxdpteuzroj53/10/2019Influenza, injectable, MDCK, preservative free, dxkzwbzivvxb28/06/2020Influenza, injectable, quadrivalent, preservative free07/09/2021,06/15/2017,06/27/2016, 06/27/2015,06/27/2014Influenza, seasonal, intradermal, preservative free 06/27/2012Janssen UDKG-ZhC-036/03/2021Pneumococcal Conjugate PCV Td (adult), 5 Lf tetanus toxoid, preservative free, wqiqzaii17/13/2008Tdap 10/14/2017 Family History Medical HistoryRelationNameCommentsCancerMotherRelationNameStatusCommentsFather DeceasedMotherDeceased Social History Tobacco UseTypesPacks/DayYears UsedDateSmoking Tobacco: NeverSmokeless Tobacco: Never Tobacco Cessation:Counseling Given: Not Answered Alcohol UseStandard Drinks/WeekCommentsNever0 (1 standard drink = 0.6 oz pure alcohol)Caffine: 1 liter dailyPHQ-2AnswerDate RecordedPatient Health Questionnaire-2 Wdmlw869Sex and Gender InformationValueDate RecordedSex Assigned at BirthNot on fileLegal OseQjko4012/09/2022 6:55 PM EDTGender Identity Male12/09/2022 6:55 PM EDTSexual OrientationNot on file Last Filed Vital Signs Vital SignReadingTime TakenCommentsBlood Hlvpnewm257/8208/10/2025 1:03 PM EST Buxfy70154/14/2025 1:03 PM GDCEsippfrtdls10.7 ??C (98.1 ??F)06/18/2025 2:55 PM EDTRespiratory Rate--Oxygen Yelcvtcjcv04%08/10/2025 1:03 PM ESTInhaled Oxygen Concentration--Zrdfwr343 kg (248 lb 12.8 oz)08/10/2025 1:03 PM OPXBnpgct530.8 cm (5' 10 )08/10/2025 1:03 PM ESTBody Mass Index35.7110/10/2024 1:03 PM EST Plan of Treatment DateTypeDepartmentCare Team (Latest Contact Info)Vrvumrmpqtf39/12/2025 2:45 PM ESTOffice Visit [facility] [address] [place] [address] Ras Genoveva Jean Carlos, [address] [place] [address] Health MaintenanceDue DateLast DoneCommentsCT Ckhoqhsuwcdw1958FIT-DNA 1958FIT1958FOBT1958 8878Lpvvimaxusqhn1958COVID-19 Vaccine ( season)5011/19/2021, 01/28/2021, 1Diabetes: Urine Protein Oxazmwqtg223Postponed from 08/23/2024 (Other Medical Reasons)Influenza Vaccine (#1)611/09/2022, 07/09/2021, 07/02/2020, Additional history existsPostponed from 05/28/2025 (Patient Refused)Diabetes: Retinopathy Jpicfntry16/, 7100Lyppxsnpywb93/26/2033 02/19/2023, 02/19/2023, 11/09/2016Colorectal Cancer Klajedxce34/26/2033Diabetes: Hemoglobin N7CZeggtqzpuqyc96/01/2023, 1Pneumococcal Vaccine: 65+ Years Pfqdlzrqt08/02/2024 Procedures Procedure NamePriorityDate/TimeAssociated DiagnosisCommentsPORPHYRINS, URINE, ICCZPIKXADIRWzqzply88/06/2025 12:58 PM EDT Chronic abdominal pain CT CHEST W IV MSAKOTZHBppqogr44/06/2025 12:53 PM EDT SOB (shortness of breath) STATUS COVID-19/SCNCulltyq42/22/2025 4:26 PM EDT Acute cough XR CHEST 2 ZQYAHWFTG04/22/2025 3:31 PM EDT Acute cough PFT JRQNRZYPKsindee63/09/2025 2:37 PM EDT Pneumonia of both lungs due to infectious organism, unspecified part of lung Supplemental oxygen dependent XR CHEST 2 IVBYOEHMF30/08/2025 3:19 PM EDT Pneumonia of both lungs due to infectious organism, unspecified part of lung Supplemental oxygen dependent DIABETIC RETINOPATHY SCREENING - OU - BOTH WTPYQktskiy68/23/2025 1:17 PM EDT MICROALBUMIN / CREATININE URINE ZZEQORwiemrq80/27/2023 9:13 AM EST Type 2 diabetes mellitus with other specified complication, without long-term current use of insulin (HCC) Encounter for wellness examination HEMOGLOBIN N3GSvutdyc45/01/2023 11:53 AM EDT Type 2 diabetes mellitus with other specified complication, without long-term current use of insulin ([facility]) Encounter for wellness examination HM ZAJBZPIESEYYbvzynl44/26/2023 12:51 PM EDTfrom Last 3 Months or Most Recently Relevant to Health Maintenance Results * (ABNORMAL) Porphyrins, urine, fractionated (07/02/2025 12:58 PM EDT)Component ValueRef RangeTest MethodAnalysis TimePerformed AtPathologist Signature UROPORPHYRIN I23.0(H)3.6 - 21.1 mcg/g creatQUESTUROPORPHYRIN III5.6< OR = 5.6 mcg/g creatQUESTHEPTACARBOXYPORPHYRIN1.6< OR = 3.4 mcg/g creatQUEST HEXACARBOXYPORPHYRINSEE NOTE< OR = 6.3 mcg/g creatQUESTComment:Result is below reportable range for this analyte.PENTACARBOXYPORPHYRIN1.3< OR = 4.1 mcg/g creatQUESTCOPROPORPHYRIN I32.96.5 - 33.2 mcg/g creatQUESTCOPROPORPHYRIN III4.5 (L)4.8 - 88.6 mcg/g creatQUESTTOTAL RYHTEMFBOL04.927.0 - 153.6 mcg/g creat QUESTINTERPRETATIONSEE NOTEQUESTComment: IN THIS URINE SAMPLE, ONE OR MORE PORPHYRINS WERE MINIMALLY ELEVATED IN A PATTERN NOT CONSISTENT WITH A PORPHYRIA. THESE RESULTS MAY REPRESENT A DRUG OR DIETARY ARTIFACT. KEEP IN MIND THAT PORPHYRINS LEVELS ARE AFFECTED BY STRESSORS OF THE HEME PATHWAY INCLUDING MEDICATIONS METABOLIZED VIA CYTOCHROME P450 (MOST COMMONLY SULFONAMIDES, AMINOPYRINE, ANTICONVULSANTS AND BARBITURATES), PHYSIOLOGIC STEROIDS, ANEMIA, HEAVY METAL INTOXICATION, ETHANOL INGESTION OR LIVER DISEASE. THIS TEST MAY NOT DETECT ELEVATED PORPHYRINS IF THE PATIENT IS ASYMPTOMATIC OR IS UNDERGOING TREATMENT. ?? Interpretation reviewed by: Matilde Winn, Ph.D., [facility]. IF THE ORDERING/TREATING PHYSICIAN HAS ANY QUESTIONS REGARDING THESE RESULTS, PLEASE CONTACT THE [facility] AT ext [phone] or ext [phone] AND ASK TO SPEAK WITH THE CORPORATE LEGAL SECRETARY DATABASE MARKETING MANAGER. FOR GENERAL QUESTIONS ABOUT [facility], PLEASE CALL THE GENE INFO LINE AT [phone] FarmsINFO. For additional information, please refer to [email or web address]/XLB404 (This link is being provided for informational/educational purposes only.) This test was developed and its analytical performance characteristics have been determined by [facility]. It has not been cleared or approved by the FDA. This assay has been validated pursuant to the CLIA regulations and is used for clinical purposes. Specimen (Source)Anatomical Location / LateralityCollection Method / Volume Collection TimeReceived TimeUrineUrine specimen obtained by clean catch procedure / Wiuqshs0707/02/2025 12:58 PM EDT1 12:58 PM EDT Narrative Resulting Agency Comment Performing Organization Information ?Site ID: [id number] ?Name: [facility], ?Address: [address] [place] [id number] ?Director: Chelita Smith MD,PhD,AUDREY Authorizing ProviderResult TypeResult StatusJepamela HERRMANN URINE ORDERABLESFinal ResultPerforming OrganizationAddressCity/State/ZIP CodePhone Number [facility] * CT chest w IV contrast (07/02/2025 12:53 PM EDT)Anatomical RegionLaterality ModalityBody, ChestComputed TomographySpecimen (Source)Anatomical Location / LateralityCollection Method / VolumeCollection TimeReceived Time07/02/2025 3:44 PM EDT Impressions 07/02/2025 3:[address] evidence of pulmonary embolism. Right middle lobe atelectasis/pneumonia. All CT scans at this facility use dose modulation, iterative reconstruction, and/or weight based dosing when appropriate to reduce radiation dose to as low as reasonably achievable. ELECTRONICALLY SIGNED BY: Buck Chaves MD Narrative 07/02/2025 3:[address] PULMONARY ANGIOGRAM WITH INTRAVENOUS CONTRAST MEDIUM. REASON FOR EXAMINATION: SHORTNESS OF BREATH. LOW OXYGEN LEVELS TECHNIQUE: Helical CTA was performed through the chest utilizing 100 ml of Isovue-370 intravenous contrast. ??Images were obtained with bolus tracking in order to opacify the pulmonary arteries. ??Thick section coronal MIP 3D reconstructions were performed on a separate workstation. COMPARISON: None FINDINGS: ?? Pulmonary arteries: No intraluminal filling defects. Thoracic aorta: Normal in course and caliber. Cardiac: Size normal. No pericardial effusion. Coronary artery calcification identified. Right lung: No nodules, masses, pleural effusion, pneumothorax. Subsegmental consolidation with airbronchogram right middle lobe. Left lung: No nodules, masses, consolidation, pleural effusion, pneumothorax. Lymph nodes: No hilar, mediastinal, or axillary lymph node enlargement. Upper abdomen:Limited imaging upper abdomen shows no gross anomaly. Musculoskeletal:No osteoblastic, and no osteolytic lesions. Procedure Note Buck Chaves MD - 07/02/2025 CT PULMONARY ANGIOGRAM WITH INTRAVENOUS CONTRAST MEDIUM. REASON FOR EXAMINATION: SHORTNESS OF BREATH. LOW OXYGEN LEVELS TECHNIQUE: Helical CTA was performed through the chest utilizing 100 ml of Isovue-370 intravenous contrast. Images were obtained with bolus trackingin order to opacify the pulmonary arteries. Thick section coronal MIP 3D reconstructions were performed on a separate workstation. COMPARISON: None FINDINGS: Pulmonary arteries: No intraluminal filling defects. Thoracic aorta: Normal in course and caliber. Cardiac: Size normal. No pericardial effusion. Coronary arterycalcification identified. Right lung: No nodules, masses, pleural effusion, pneumothorax.Subsegmental consolidation with air bronchogram right middle lobe. Left lung: No nodules, masses, consolidation, pleural effusion,pneumothorax. Lymph nodes: No hilar, mediastinal, or axillary lymph node enlargement. Upper abdomen:Limited imaging upper abdomen shows no gross anomaly. Musculoskeletal:No osteoblastic, and no osteolytic lesions. IMPRESSION: No CT evidence of pulmonary embolism. Right middle lobeatelectasis/pneumonia. All CT scans at this facility use dose modulation, iterativereconstruction, and/or weight based dosing when appropriate to reduceradiation dose to as low as reasonably achievable. ELECTRONICALLY SIGNED BY: Buck Chaves MD Authorizing ProviderResult TypeResult Montserrat Mayfield NPIMG CT PROCEDURES Final Result * STATUS COVID-19/FLU (06/18/2025 4:26 PM EDT)ComponentValueRef RangeTest Method Analysis TimePerformed AtPathologist SignatureFLU A-FLU B-SARS COV 2 RNA- Specimen (Source)Anatomical Location / LateralityCollection Method / Volume Collection TimeReceived EfrwNfjhudiquhkjye35/22/2025 4:26 PM EDT Narrative Authorizing ProviderResult TypeResult Montserrat Mayfield NPPOINT OF CARE TEST ENTER/EDIT ORDERABLESFinal Result * XR chest 2 views (06/18/2025 3:31 PM EDT) Only the most recent of2 resultswithin the time period is included. Anatomical RegionLateralityModalityChestRadiographic ImagingSpecimen (Source) Anatomical Location / LateralityCollection Method / VolumeCollection Time Received Time06/18/2025 4:01 PM EDT Impressions 06/18/2025 4:02 PM EDT No acute radiographic findings. ELECTRONICALLY SIGNED BY: Jasbir Hammond MD Narrative 06/18/2025 4:02 PM EDT EXAMINATION/TECHNIQUE: XR CHEST 2 VIEWS HISTORY: Cough. Wheezing. COMPARISON: 06/04/2025. RESULT: Elevation of the right hemidiaphragm with chronic scarring/atelectasis at the right lung base. No large pleural effusion. No pneumothorax. Stable cardiomediastinal silhouette. No acute osseous findings. Degenerative changes. DISH. Postsurgical changes lower cervical spine. Procedure Note Jasbir Hammond MD - 06/18/2025 EXAMINATION/TECHNIQUE: XR CHEST 2 VIEWS HISTORY: Cough. Wheezing. COMPARISON: 06/04/2025. RESULT: Elevation of the right hemidiaphragm with chronic scarring/atelectasis atthe right lung base. No large pleural effusion. No pneumothorax. Stable cardiomediastinal silhouette. No acute osseous findings. Degenerativechanges. DISH. Postsurgical changes lower cervical spine. IMPRESSION: No acute radiographic findings. ELECTRONICALLY SIGNED BY: Jasbir Hammond MD Authorizing ProviderResult TypeResult [facility] CenterAlya Mayfield [facility] ([place], [place]) XR PROCEDURES Final Result * Pulmonary Function Test (06/05/2025 2:37 PM EDT)Anatomical RegionLaterality ModalityPFTSpecimen (Source)Anatomical Location / LateralityCollection Method / VolumeCollection TimeReceived Time Narrative 06/13/2025 12:05 PM EDT PFT Interpretation 65-year-old male referred by Puneet Mayfield APRN for pulmonary function test with a diagnosis of hypoxia and pneumonia. ??He is a lifelong nonsmoker. ?? Review his spirometry does not demonstrate any evidence of obstructive changes. ??There was no significant response to bronchodilator therapy. ?? There is no evidence of air trapping or hyperinflation. ??His diffusion capacity is within normal limits. ??Overall this set of pulmonary function test does not demonstrate any evidence of obstructive changes. ??There is a decrease in his total lung capacity consistent with mild restrictive lung disease. ??Clinical correlation is recommended. Authorizing ProviderResult TypeResult [facility] CenterAyla Mayfield [facility] ([place] [place]) XR PROCEDURES Final Result * Diabetic Retinopathy Screening - OU - Both Eyes (02/16/2025 1:17 PM EDT) Anatomical RegionLateralityModalityHeadOther Narrative Authorizing ProviderResult TypeResult Huyen Acosta MDOPHCHANCE PHOTOGRAPHY Final Result * (ABNORMAL) Microalbumin / creatinine, urine ratio (08/23/2023 9:13 AM EST) ComponentValueRef RangeTest MethodAnalysis TimePerformed AtPathologist SignatureCREATININE, RANDOM OICUL38547 - 320 mg/dLQUESTALBUMIN, URINE14.2See Note: mg/dLQUESTComment: Reference Range: Reference Range Not established ALBUMIN/CREATININE RATIO, RANDOM URINE59(H)<30 mcg/mg creatQUESTComment: The ADA defines abnormalities in albumin excretion as follows: Albuminuria Category ?Result (mcg/mg creatinine) Normal to Mildly increased <30 Moderately increased ? 30-299 Severely increased > OR = 300 The ADA recommends that at least two of three specimens collected within a 3-6 month period be abnormal before considering a patient to be within a diagnostic category. Specimen (Source)Anatomical Location / LateralityCollection Method / Volume Collection TimeReceived TimeUrineUrine specimen obtained by clean catch procedure / Scwvwtc4608/23/2023 9:13 AM EST08/23/2023 4:54 PM EST Narrative [facility] - 08/24/2023 11:00 AM EST SPLIT 07/28/2023 FROM [id number] Resulting Agency Comment Performing Organization Information ?Site ID: [id number] ?Name: [facility] ?Address: [address] [place] [id number] ?Director: Matt Brewer MD Authorizing ProviderResult TypeResult StatusChristy A Callie KYRIE URINE ORDERABLESFinal ResultPerforming OrganizationAddressCity/State/ZIP CodePhone Number [facility] * Hemoglobin A1c (07/28/2023 11:53 AM EDT)ComponentValueRef RangeTest Method Analysis TimePerformed AtPathologist SignatureHemoglobin A1C5.5<5.7 % of total HgbQUESTComment: For the purpose of screening for the presence of diabetes: <5.7% Consistent with the absence of diabetes 5.7-6.4% ?Consistent with increased risk for diabetes ?(prediabetes) > or =6.5% Consistent with diabetes This assay result is consistent with a decreased risk of diabetes. Currently, no consensus exists regarding use of hemoglobin A1c for diagnosis of diabetes in children. According to [place] [employer] (ADA) guidelines, hemoglobin A1c <7.0% represents optimal control in non- diabetic patients. Different metrics may apply to specific patient populations. Standards of Medical Care in Diabetes(ADA). Specimen (Source)Anatomical Location / LateralityCollection Method / Volume Collection TimeReceived TimeBloodVenous blood specimen / Gkwcmaj9507/28/2023 11:53 AM EDT109/27/2022 11:53 AM EDT Narrative [facility] - 07/29/2023 7:53 AM EDT MULTIPLE TESTING PRIORITIES; ROUTINE TESTING TO FOLLOW. Resulting Agency Comment Performing Organization Information ?Site ID: [id number] ?Name: [facility] ?Address: [address] [place] [address], [address] [place] [id number] ?Director: Matt Brewer MD Authorizing ProviderResult TypeResult StatusChristy Flash Ledesma NPLAB BLOOD ORDERABLESFinal ResultPerforming OrganizationAddressCity/State/ZIP CodePhone Number [facility] * [facility] Colonoscopy (02/19/2023 12:51 PM EDT)Anatomical RegionLateralityModality Other Narrative Authorizing ProviderResult TypeResult StatusLul Maldonado MDHEALTH MAINTENANCE Final Result from Last 3 Months or Most Recently Relevant to Health Maintenance Insurance Care Teams Team MemberRelationshipSpecialtyStart DateEnd Yola Acosta MD [address] [place] [address] PCP - GeneralFamily Medicine03/11/23
--- OUTSIDE RECORDS SUMMARY | 2025-08-28 09:50 | XMS_ITS | Clinical Summary ---
Author Organization ralali [facility] tem Address [id number] [address] [place] [address] Care Team Providers Care Family Practice Md Name Role Phone Yola Acosta MD Primary Care Provider [phone] Allergies No known active allergies Medications MedicationSigDispense QuantityRefillsLast FilledStart DateEnd DateStatus citalopram (CeleXA) 20 mg tablet Take 40 mg by mouth daily. Active cholecalciferol, vitamin D3, 5,000 units tablet Take 5,000 Units by mouth daily.Active lamoTRIgine (LaMICtal) 25 mg tablet Take 25 mg by mouth daily.Active gabapentin (NEURONTIN) 300 mg capsule Take 300 mg by mouth 2 (two) times a day.Active naproxen (NAPROSYN) 500 mg tablet Take 500 mg by mouth 2 (two) times a day with meals.Active olopatadine (PATANOL) 0.1 % ophthalmic solution 1 drop 2 (two) times a day.Active atorvastatin (LIPITOR) 40 mg tablet Take 40 mg by mouth daily.Active Active Problems No known active problems Social History Tobacco UseTypesPacks/DayYears UsedDateSmoking Tobacco: NeverSmokeless Tobacco: NeverAlcohol UseStandard Drinks/WeekCommentsNot Currently0 (1 standard drink = 0.6 oz pure alcohol)ChildcareAnswerDate JvkktrbjIkbkinrfyGzkhjva13/12/2019 EmploymentAnswerDate LozgvvwoZhffsyyxmaXvvzbqm85/12/2019Sex and Gender InformationValueDate RecordedSex Assigned at BirthNot on fileLegal SexMale 05/02/2015 11:21 AM EDTGender IdentityNot on fileSexual OrientationNot on file Last Filed Vital Signs Vital SignReadingTime TakenCommentsBlood Izspgwic938/9011 7:18 PM EDT Bhhko9865 7:51 PM HODKavvhumyzrg20.8 ??C (98.3 ??F)07/28/2021 10:49 AM EDTRespiratory Bigd924409/27/2020 7:51 PM EDTOxygen Trwguadmtq86%07/28/2021 7:51 PM EDTInhaled Oxygen Concentration--Mecogq088.6 kg (246 lb)07/28/2021 10:45 AM EDTHeight--Body Mass Index-- Plan of Treatment Health MaintenanceDue DateLast DoneCommentsDepression Ncxjhwbev40/27/1970Tobacco Kyxgozlpi32/27/1970Adult BMI Rcfsflsvl55/27/1976Zoster (Shingles) Vaccine (1 of 2)02/21/2008Fall Risk Arkxdladu18/27/2023OVID-19 Vaccine (3 - season) 502/, 01/28/2021Influenza Qeztgpa11/09/2022, 07/09/2021, 07/02/2020, Additional history yfmwrrBbzkruaobhj30/13/202702/ DTaP,Tdap and Td Vaccines (2 - Td or Tdap), 07/09/2008RSV ( or age 60+ yrs) (1 - 1-dose 75+ series)2033 [employer] Not on file Insurance Care Teams Team MemberRelationshipSpecialtyStart DateEnd Date Yola Acosta MD [address] [place] [address] PCP - GeneralFamily Orjjotls06/1/21
--- OUTSIDE RECORDS SUMMARY | 2025-08-28 09:50 | XMS_ITS | Encounter Summary ---
Author Organization [facility] Address [address] [place] [address] Care Team Providers Care Practicing Md Anesthesiologist Name Role Phone Yola Acosta MD Primary Care Provider [phone] Encounter Details DateTypeDepartmentCare Team (Latest Contact Info)Hlnpyeezndd28/19/2025Telephone [facility] [address] [place] [phone] Randee Jimenez MA Social History Tobacco UseTypesPacks/DayYears UsedDateSmoking Tobacco: NeverSmokeless Tobacco: NeverAlcohol UseStandard Drinks/WeekCommentsNever0 (1 standard drink = 0.6 oz pure alcohol)Caffine: 1 liter dailyPHQ-2AnswerDate RecordedPatient Health Questionnaire-2 Fvtud309Sex and Gender InformationValueDate RecordedSex Assigned at BirthNot on fileLegal CofDnbl6612/09/2022 6:55 PM EDTGender Identity Male12/09/2022 6:55 PM EDTSexual OrientationNot on filedocumented as of this encounter Miscellaneous Notes * Telephone Encounter - Randee Jimenez MA - 08/15/2025 9:27 AM EST [facility] called stating they did not get an order or Demographic sheet for she thinks its a CPAP. Tele- [phone]. Fax- [phone] Please assist thank you documented in this encounter Plan of Treatment DateTypeDepartmentCare Team (Latest Contact Info)Elpumdclcai53/12/2025 2:45 PM ESTOffice Visit [facility] [address] [place] [address] Genoveva Mcginnis, DO [address] [place] [address] documented as of this encounter Visit Diagnoses Not on filedocumented in this encounter Additional Health Concerns AssessmentNoted TimePHQ-9 Depression Total Score: 10005/22/2025 3:32 PM EDT documented as of this encounter Care Teams Team MemberRelationshipSpecialtyStart DateEnd Date Yola Acosta MD [address] [place] [address] PCP - GeneralFamily Medicine03/11/23documented as of this encounter
--- NOTE | 2025-08-28 09:58 | FL_ITS ---
[facility] [place] [id number] Patient Name: LIZET KWON MRN: [id number] date: 1960 Sex: M Assigned Patient Location: OR Current Patient Location: OR Accession/Order Number: [id number] Exam Date: 08/28/2025 10:05 Report Date: 08/28/2025 11:47 At the request of: KIMANI HENAO Procedure: FL sniff test SNIFF TEST. Reason for exam: Diaphragmatic dysfunction. COMPARISON: None. FINDINGS: Normal motion is seen involving the left hemidiaphragm. There is paralysis of the right hemidiaphragm with minimal movement seen. FL/FL sniff test IMPRESSION: Right hemidiaphragm paralysis. 1.8 minutes of fluoroscopic time was utilized. One image was obtained. Impression dictated by: Isreal Mariano Jr., D.O. 08/28/2025 11:47 AM Dictation Location: [place] [address] Electronically authenticated by: [id number] Y Date: 08/28/2025 11:47
== END 2025-08-28 09:48 | disposition home or self-care (01) ==
LOC: FL 09:47
PROVIDERS: PCP Family Medicine; Visit Provider Internal Medicine
DX: J98.6 Disorders of diaphragm (principal); R06.02 Shortness of breath
CPT/HCPCS: 76000